=== PATIENT | male | born 1985 | race African-American/Black ===

== ENCOUNTER 2017-04-24 14:41 | Emergency (ER) | payer OTHER ==
[~2017-04-24] VITALS: Ht 198.1 cm; Wt 115.0 kg
[2017-04-24 14:45] VITALS: BP 137/90; PULSE 98; RESP 15; TEMP 98; O2SAT 98
--- NOTE | 2017-04-24 15:30 | PD ---
HPI Chief Complaint: Injury Time Seen by Provider: 15:25 Travel History International Travel<30 days: No Contact w/Intl Traveler<30days: No Traveled to known affect area: No History of Present Illness HPI 31-year-old male presents to the emergency room for evaluation of left knee injury status post open fall. Patient works at [employer] and was walking when he slipped on oil on the floor. His right foot slipped forward and he landed on his left knee. Denies head trauma or loss of consciousness. He is complaining of pain 7 on a scale 1-10 in the left knee at the anterior medial aspect. Pain is aggravated with palpation and with movement. States that he has a history of prior left knee injury about 5 years ago that occasionally causes him pain however today's pain is much worse than his previous knee pain. He denies any numbness or tingling, weakness, decreased range of motion. No other complaints. PFSH Past Medical History Medical other: Yes (LEFT KNEE INJURED IN THE PAST(POSS MINISCUS TEAR)) Immunizations Current: Yes Past Surgical History Surgical History: No Previous Surgery Social History Alcohol Use: Yes Tobacco Use: No Substance Use: No Allergies-Medications (Allergen,Severity, Reaction): Coded Allergies: No Known Allergies (Unverified , 04/24/17) Reported Meds & Prescriptions Reported Meds & Active Scripts Active Lortab (Hydrocodone-Acetaminophen) 5-325 Mg Tab 1 Tab PO Q6H PRN Naproxen 500 Mg Tab 500 Mg PO BID 7 Days Review of Systems Except as stated in HPI: all other systems reviewed are Neg Physical Exam Narrative GENERAL: Well-nourished and well-developed pleasant male patient in no acute distress who is nontoxic appearing. SKIN: Warm and dry. HEAD: Normocephalic and atraumatic. EYES: No injection, drainage, or hyphema noted. PERRLA. EOMI. ENT: No nasal drainage noted. Oropharynx is clear. NECK: Supple and the trachea is midline. CARDIOVASCULAR: Regular rate and rhythm. RESPIRATORY: Breath sounds are equal bilaterally with no accessory muscle use, wheezing, rhonchi, or crackles. GASTROINTESTINAL: Abdomen is soft, non-tender, and nondistended. MUSCULOSKELETAL: Slight swelling noted to the anterior medial left knee with tenderness to palpation and painful range of motion. No obvious deformities, cyanosis, or ecchymosis is present throughout the upper and lower extremities. Patient has full range of motion without any signs of neurovascular compromise. DP pulses are 2+ bilaterally. NEUROLOGICAL: Awake, alert, and oriented. Normal speech and gait. Cranial nerves are grossly intact. Data Data Last Documented VS Vital Signs Date Time Temp Pulse Resp B/P Pulse Ox O2 Delivery O2 Flow Rate FiO2 04/24/17 14:45 98.0 98 15 137/90 98 Orders Knee, Complete (4vws) (04/24/17 15:01) Acetamin-Hydrocod 325-5 Mg ([place] 5-325 (04/24/17 16:15) Splint Or Brace Apply/Monitor (04/24/17 16:56) Crutches (04/24/17 16:56) MDM Medical Decision Making Medical Screen Exam Complete: Yes Emergency Medical Condition: Yes Differential Diagnosis Contusion versus sprain versus fracture Narrative Course 31-year-old male presents to the emergency department for evaluation of left knee pain status post slip and fall onto his left knee while at work. Patient is afebrile, vital signs are stable. Left lower extremity is neurovascularly intact. He has tenderness and pain to the anterior medial aspect of the left knee. X-ray imaging has been ordered and is pending. X-ray of the left knee is negative for any acute abnormalities. Patient is placed in an Rafael wrap and given crutches for ambulation. He'll be discharged with naproxen and Lortab. Discussed supportive care with the patient. Advised follow up with an outpatient PCP or orthopedist if symptoms persist. Patient verbalizes understanding and agreement with treatment plan. Diagnosis Primary Impression: Left knee injury Qualified Code: S89.92XA - Left knee injury, initial encounter Additional Impression: Fall Qualified Code: W19.XXXA - Fall, initial encounter Referrals: Primary Care Physician Patient Instructions: General Instructions, Knee Pain (ED) Departure Forms: Tests/Procedures, Work Release Enter return to work date: Apr 28, 2017 Additional Instructions: Elevate left knee. Use crutches for ambulation. Apply ice for 20 minutes on, 20 minutes off. Take medications as prescribed with food and a full glass of water. Do not take Lortab with alcohol or while driving. Follow-up with your Primary Care Physician. Return to the ED for any acute worsening of symptoms. Med/Other Pt SpecificInfo: Prescription(s) given Scripts Hydrocodone-Acetaminophen (Lortab)5-325 Mg Tab1 Tab PO Q6H PRN (PAIN GREATER THAN 6) #10 TAB Ref 0 Prov:Cathi Lafleur DO 04/24/17 Naproxen 500 Mg Yco233 Mg PO BID 7 Days Ref 0 Prov:Cathi Lafleur DO 04/24/17 Disposition: 01 DISCHARGE HOME Condition: Stable Randa Jordan Apr 24, 2017 15:29
[2017-04-24] MEDS ORDERED: ACETAMINOPHEN/HYDROcodone 325 MG/5 MG TAB PO ONE (16:15)
--- NOTE | 2017-04-24 16:21 | RADRPT ---
EXAM DATE/TIME: 04/24/2017 16:04 [facility] COMPARISON: No previous studies available for comparison. 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 MEDICAL HISTORY : Torn meniscus, left. SURGICAL HISTORY : None. ENCOUNTER: Initial ACUITY: 1 day PAIN SCORE: 7/10 LOCATION: Left knee. FINDINGS: Four view examination of the left knee demonstrates no evidence of fracture or dislocation. Bony min eralization is normal. The articular surfaces are intact. Soft tissue swelling. CONCLUSION: Soft tissue swelling otherwise unremarkable examination of the left knee. Ang Suarez MD on April 24, 2017 at 16:19 Board Certified Radiologist. This report was verified electronically.
[2017-04-24] MEDS ORDERED: NAPR500T PO (16:56)
[2017-04-24] MEDS ORDERED: HYDR-3533 PO (16:56)
== END 2017-04-24 17:35 | disposition home or self-care (01) ==
LOC: NEPD 14:41
DX: S89.92XA Unspecified injury of left lower leg, initial encounter (principal); W19.XXXA Unspecified fall, initial encounter
CPT/HCPCS: 73564; 99284; E0113

== ENCOUNTER 2017-04-27 18:03 | Emergency (ER) | payer OTHER ==
[~2017-04-27] VITALS: Ht 195.6 cm; Wt 110.0 kg
[~2017-04-27 18:03] MED LIST: HYDR-3533 PO; NAPR500T PO
--- NOTE | 2017-04-27 18:51 | PD ---
Physical Exam Date Seen by Provider: Apr 27, 2017 Time Seen by Provider: 18:50 Narrative 31 yo male here for evaluation of left knee pain. Seen here last week for injury to it a week ago. Pain not improving. Still cant walk on it. Using crutches. No new trauma. Vitals are stable in triage. Awaiting Bed placement. [facility] Medical Record Reviewed: Yes Supervised Visit with JEREMIAH: Chris Bonilla Apr 27, 2017 18:51
--- NOTE | 2017-04-27 19:40 | PD ---
HPI Chief Complaint: Musculoskeletal Complaint Time Seen by Provider: 19:35 Travel History International Travel<30 days: No Contact w/Intl Traveler<30days: No Traveled to known affect area: No History of Present Illness HPI 31-year-old black male presents to emergency department with complains of knee pain. This patient was involved in a work comp injury on 04/24/19. He states that he works at [employer]. He had slipped on a wet oily floor landing on his left knee. He was seen in emergency department the day of his injury. X- rays of the knee were performed and were negative. He was given Rafael wrap, crutches, anti-inflammatory and Lortab. He states that he is still having pain in his knee and has not had any improvement. He is unable to fully weight- bear. He was instructed by his employer to come back to the ER. He states that his girlfriend had contacted [employer] but he does not know what her current plan is for him. He denies any other injuries. He states the pain is a 7/10. Worse with weightbearing. Some relief with elevation. PFSH Past Medical History Narrative Medical Prior left knee injury Immunizations Current: Yes Tetanus Vaccination: < 5 Years Past Surgical History Surgical History: No Previous Surgery Social History Alcohol Use: Yes Tobacco Use: No Substance Use: No Allergies-Medications (Allergen,Severity, Reaction): Coded Allergies: No Known Allergies (Unverified , 04/24/17) Reported Meds & Prescriptions Reported Meds & Active Scripts Active Lortab (Hydrocodone-Acetaminophen) 5-325 Mg Tab 1 Tab PO Q6H PRN Naproxen 500 Mg Tab 500 Mg PO BID 7 Days Review of Systems Except as stated in HPI: all other systems reviewed are Neg Musculoskeletal: Positive: Arthralgias, Limited ROM, Pain, No: Weakness, Edema Skin: No Rash Neurologic: No: Paresthesia Physical Exam Narrative GENERAL: This is a well-nourished, well-developed patient, in no apparent distress. SKIN: No rashes, ecchymoses or lesions. Warm and dry. HEAD: Atraumatic. Normocephalic. EYES: PERRL, EOMI, no discharge or injection. No scleral icterus. EARS: Clear NOSE: Nasal turbinates appear normal. THROAT: Mucosa pink and moist. Airway patent. NECK: Trachea midline. supple, moves head freely. LUNGS: Clear to auscultation. CV: Regular in rhythm. ABDOMEN: Soft nontender. EXT: No clubbing cyanosis or edema. Examination left lower extremity reveals no obvious joint effusion. He complains of diffuse tenderness to palpation of the knee. There is no mediolateral collateral ligament instability. No anterior posterior draw. He has full extension but has limited flexion to 90. There is no pain in the hip, ankle or foot. He has intact sensation with good distal pulses. Patient's able to stand and weight-bear but ambulates with an antalgic gait. [facility] Medical Decision Making Medical Screen Exam Complete: Yes Emergency Medical Condition: Yes Medical Record Reviewed: Yes Differential Diagnosis [facility]: High Differential diagnoses: Fracture, sprain, strain, dislocation, contusion, neurovascular injury Narrative Course I have reviewed the patient's x-ray. There is no obvious bony injury. Patient' s exam reveals no significant identifiable injury. The ligaments appear to be intact. The patient has been instructed to continue to ice, elevate, Rafael wrap and use crutches. He is to continue his medications. He has been advised to contact workman's comp to determine what other modalities may be indicated for this individual's care. The patient has been advised that he can return to work on light duty. He can have sedentary work for 5 days. Diagnosis Primary Impression: Contusion of left knee Qualified Code: S80.02XD - Contusion of left knee, subsequent encounter Additional Impression: Left knee sprain Qualified Code: S83.92XD - Sprain of left knee, unspecified ligament, subsequent encounter Patient Instructions: General Instructions Additional Instructions: Rest. Elevation. Continue ice packs for any acute swelling and pain.. Rafael wrap and crutches. No weight-bearing and then progress to weight-bearing as tolerated. Medications as directed Follow-up with Workmen's Compensation in the next 3-5 days. Return to the ER if any problems Med/Other Pt SpecificInfo: Prescription(s) given Disposition: 01 DISCHARGE HOME Condition: Stable Neno Morris Apr 27, 2017 19:40
[2017-04-27] MEDS ORDERED: NAPR500T PO (19:41)
[2017-04-27] MEDS ORDERED: HYDR-3533 PO (19:41)
== END 2017-04-27 19:58 | disposition home or self-care (01) ==
LOC: NEPK 18:03
DX: M25.562 Pain in left knee (principal)
CPT/HCPCS: 99283